=== PATIENT | female | born 1965 | race Caucasian/White ===

== ENCOUNTER 2017-05-14 16:40 | Emergency (ER) | payer OTHER ==
[~2017-05-14] VITALS: Ht 170.2 cm; Wt 63.3 kg
[~2017-05-14 16:40] MED LIST: IMODIUM MS REL1 EACH PO; TYLENOL WITH C1 EACH PO
[2017-05-14 18:02] LABS: HEMATOCRIT 32.8 % (36.0-46.0); MCH 32.6 PG (29.0-34.0); MCHC 33.8 G/DL (30.0-36.0); MCV 96.2 FL (83-99); MEAN PLAT.VOLUME 11.5 uM^3 (9.5-12.4); PLATELET COUNT 52 K/uL (156-360); RBC DIS.WIDTH-CV 15.1 % (11.8-14.6); RBC DIS.WIDTH-SD 53.4 % (39-53); RED BLOOD COUNT 3.41 M/uL (3.80-5.20)
[2017-05-14 18:10] LABS: CHLORIDE 108 mEq/L (99-109); POTASSIUM 3.1 mEq/L (3.7-5.4); SODIUM 142 mEq/L (136-147)
[2017-05-14 18:12] LABS: ADD MIUA? YES; BILIRUBIN NEGATIVE; BLOOD SMALL; COLOR YELLOW ((YELLOW)); GLUCOSE (STRIP) NEGATIVE; KETONES NEGATIVE; LEUKOCYTES NEGATIVE; NITRITE NEGATIVE; PROTEIN (STRIP) NEGATIVE; SPECIFIC GRAVITY 1.003 (1.000-1.030); UROBILINOGEN 0.2 MG/DL (0.2-1.0)
[2017-05-14 18:13] LABS: GLUCOSE 104 mg/dL (70-99)
[2017-05-14 18:14] LABS: ANION GAP 8 MEQ/L (2-14); TOTAL BILIRUBIN 3.9 mg/dL (0.0-1.0)
[2017-05-14 18:15] LABS: SERUM ETHYL ALCOHOL 394 mg/dL
[2017-05-14 18:16] LABS: ALKALINE PHOSPHATASE 73 IU/L (3-129); GFR ESTIMATE (CALCULATED) > 59 mL/min/
[2017-05-14 18:17] LABS: UREA NITROGEN (BUN) 3 mg/dL (9-23)
[2017-05-14 18:34] LABS: EPITHELIAL CELLS RARE /HPF; RED BLOOD CELLS 0-5 /HPF (0-5); WHITE BLOOD CELLS RARE /HPF (0-5)
[2017-05-14 18:35] LABS: BACTERIA 2+ /HPF; CASTS NONE SEEN /LPF; CRYSTALS NONE SEEN; MUCUS RARE /LPF; UCUL ADDED? NO
[2017-05-14 20:29] VITALS: BP 117/69
== END 2017-05-14 20:30 | disposition home or self-care (01) ==
LOC: EME 16:40
PROVIDERS: Emergency Medicine
DX: F10.129 Alcohol abuse with intoxication, unspecified (principal); R19.7 Diarrhea, unspecified; D69.6 Thrombocytopenia, unspecified; E11.9 Type 2 diabetes mellitus without complications; Z87.891 Personal history of nicotine dependence
CPT/HCPCS: 74176; 80053; 81003; 85027; 99281; 99285; G0480; J7030

== ENCOUNTER 2017-06-11 15:11 | Emergency (ER) | payer OTHER ==
[~2017-06-11] VITALS: Ht 165.1 cm; Wt 68.1 kg
[2017-06-11 17:59] LABS: EOSINOPHIL (%) 0.8 % (0-5); INSTRUMENT ABS NEUTROPHIL CT 1.3 K/uL; LYMPHOCYTE COUNT 1.5 K/uL (1.0-2.8); MCH 31.2 PG (29.0-34.0); MCHC 32.3 G/DL (30.0-36.0); MCV 96.6 FL (83-99); MONOCYTE (%) 22.4 % (3-12); MONOCYTE COUNT 0.8 K/uL (0-0.8); NEUTROPHIL (%) 35.5 % (45-76); NEUTROPHIL COUNT 1.3 K/uL (1.8-6.4); RBC DIS.WIDTH-CV 15.7 % (11.8-14.6); RBC DIS.WIDTH-SD 55.8 % (39-53); RED BLOOD COUNT 3.21 M/uL (3.80-5.20); WHITE BLOOD COUNT 3.8 K/uL (4.1-10.2)
[2017-06-11 19:30] LABS: MEAN PLAT.VOLUME 12.8 uM^3 (9.5-12.4); PLATELET COUNT 46 K/uL (156-360)
[2017-06-11 19:32] LABS: PLAT.SUFFICIENCY VERY DECREASED
[2017-06-11 19:57] VITALS: BP 122/74
== END 2017-06-11 19:59 | disposition home or self-care (01) ==
LOC: EME 15:11
PROVIDERS: Emergency Medicine
DX: R04.0 Epistaxis (principal); Z85.42 Personal history of malignant neoplasm of other parts of uterus; Z90.710 Acquired absence of both cervix and uterus; Z87.891 Personal history of nicotine dependence
CPT/HCPCS: 85025; 99281; 99283

== ENCOUNTER 2017-09-02 12:24 | Inpatient (IN) | payer OTHER ==
[~2017-09-02] VITALS: Ht 167.6 cm; Wt 80.0 kg
[2017-09-02 12:48] LABS: POINT-OF-CARE METER ID UU13113778
[2017-09-02 13:13] LABS: ADD MIUA? YES; BILIRUBIN NEGATIVE; BLOOD SMALL; COLOR YELLOW ((YELLOW)); GLUCOSE (STRIP) NEGATIVE; KETONES NEGATIVE; LEUKOCYTES NEGATIVE; NITRITE NEGATIVE; PROTEIN (STRIP) NEGATIVE; SPECIFIC GRAVITY 1.003 (1.000-1.030); UROBILINOGEN 0.2 MG/DL (0.2-1.0)
[2017-09-02 13:17] LABS: HEMATOCRIT 21.4 % (36.0-46.0); MCH 25.7 PG (29.0-34.0); MCHC 29.9 G/DL (30.0-36.0); MCV 85.9 FL (83-99); RBC DIS.WIDTH-CV 22.2 % (11.8-14.6); RED BLOOD COUNT 2.49 M/uL (3.80-5.20); WHITE BLOOD COUNT 3.5 K/uL (4.1-10.2)
[2017-09-02 13:20] LABS: CHLORIDE 113 mEq/L (99-109); POTASSIUM 3.2 mEq/L (3.7-5.4); SODIUM 141 mEq/L (136-147)
[2017-09-02 13:21] LABS: GLUCOSE 151 mg/dL (70-99)
[2017-09-02 13:23] LABS: ANION GAP 5 MEQ/L (2-14)
[2017-09-02 13:25] LABS: GFR ESTIMATE (CALCULATED) > 59 mL/min/
[2017-09-02 13:26] LABS: UREA NITROGEN (BUN) 2 mg/dL (9-23)
[2017-09-02 13:35] LABS: BACTERIA RARE /HPF; EPITHELIAL CELLS RARE /HPF; MUCUS NONE SEEN /LPF; RED BLOOD CELLS 0-5 /HPF (0-5); UCUL ADDED? NO; WHITE BLOOD CELLS 0-5 /HPF (0-5)
[2017-09-02 13:56] LABS: IMM.PLATELET FRACTION 11.9 (1-7); PLAT.SUFFICIENCY DECREASED; PLATELET COUNT 30 K/uL (156-360)
[2017-09-02 15:28] LABS: INTER. NORMALIZED RATIO 2.4; PROTHROMBIN TIME 26.8 SEC (10.2-12.9)
[2017-09-02 15:36] LABS: TOTAL BILIRUBIN 3.9 mg/dL (0.0-1.0)
[2017-09-02 15:37] LABS: ALKALINE PHOSPHATASE 119 IU/L (3-129); SERUM ETHYL ALCOHOL 370 mg/dL
[2017-09-02 15:39] LABS: DIRECT BILIRUBIN 2.5 mg/dL (0.0-0.3)
[2017-09-02 15:41] LABS: LIPASE 106 U/L (1.0-51.0)
[2017-09-02 16:34] LABS: MAGNESIUM 1.4 mg/dL (1.3-2.7)
[2017-09-02 17:30] VITALS: BP 127/63
[2017-09-02] MEDS ORDERED: ZANTAC150 MG PO (19:45)
[2017-09-02] MEDS ORDERED: PRILOSEC20 MG PO (19:46)
[2017-09-02] MEDS ORDERED: GLUCOTROL10 MG PO (19:46)
[2017-09-02] MEDS ORDERED: MILK THISTLE150 MG PO (19:47)
[2017-09-02] MEDS ORDERED: VITAMIN B-1100 MG PO (19:47)
[2017-09-02] MEDS ORDERED: PROZAC10 MG PO (19:48)
[2017-09-02 19:50] VITALS: BP 106/73
[2017-09-03] VITALS (21 sets, daily range): BP systolic 26–141; BP diastolic 7–86
[2017-09-03 00:57] LABS: MCV 87.4 FL (83-99)
[2017-09-03 09:50] LABS: HEMATOCRIT 22.2 % (36.0-46.0); MCV 86.4 FL (83-99)
[2017-09-03 10:31] LABS: PTT 55.5 SEC (25-37)
[2017-09-03 10:36] LABS: INTER. NORMALIZED RATIO 2.6; PROTHROMBIN TIME 29.4 SEC (10.2-12.9)
[2017-09-03 10:53] LABS: POINT-OF-CARE METER ID UU14314088
[2017-09-03 11:06] LABS: MCH 26.4 PG (29.0-34.0); MCHC 30.4 G/DL (30.0-36.0); RBC DIS.WIDTH-CV 20.3 % (11.8-14.6); RBC DIS.WIDTH-SD 61.2 % (39-53); RED BLOOD COUNT 2.58 M/uL (3.80-5.20); WHITE BLOOD COUNT 2.2 K/uL (4.1-10.2)
[2017-09-03 11:34] LABS: IMM.PLATELET FRACTION 9.7 (1-7); PLAT.SUFFICIENCY DECREASED
[2017-09-03 16:06] LABS: HEMATOCRIT 22.8 % (36.0-46.0)
[2017-09-04] VITALS (17 sets, daily range): BP systolic 120–157; BP diastolic 65–98
[2017-09-04 05:49] LABS: INTER. NORMALIZED RATIO 2.3; PROTHROMBIN TIME 25.7 SEC (10.2-12.9)
[2017-09-04 05:58] LABS: HEMATOCRIT 25.5 % (36.0-46.0); MCH 26.8 PG (29.0-34.0); MCHC 31.8 G/DL (30.0-36.0); MCV 84.4 FL (83-99); RBC DIS.WIDTH-CV 18.7 % (11.8-14.6); RBC DIS.WIDTH-SD 55.2 % (39-53); RED BLOOD COUNT 3.02 M/uL (3.80-5.20); WHITE BLOOD COUNT 3.1 K/uL (4.1-10.2)
[2017-09-04 06:20] LABS: IMM.PLATELET FRACTION 5.8 (1-7); PLAT.SUFFICIENCY VERY DECREASED
[2017-09-04 06:29] LABS: PLATELET COUNT 25 K/uL (156-360)
[2017-09-04 11:58] LABS: ALKALINE PHOSPHATASE 72 IU/L (3-129); ANION GAP 6 MEQ/L (2-14); CHLORIDE 108 MEQ/L (99-109); GFR ESTIMATE (CALCULATED) > 59 mL/min/; GLUCOSE 154 mg/dL (70-99); POTASSIUM 3.4 MEQ/L (3.7-5.4); SAMPLE HEMOLYSIS CHECK 0; SAMPLE ICTERIC CHECK 2; SAMPLE LIPEMIA CHECK 0; SODIUM 137 MEQ/L (136-147); TOTAL BILIRUBIN 6.8 MG/DL (0.0-1.0); UREA NITROGEN (BUN) 5 mg/dL (9-23)
[2017-09-04 20:59] LABS: HEMATOCRIT 25.5 % (36.0-46.0)
[2017-09-05 01:20] LABS: HEMATOCRIT 25.4 % (36.0-46.0); MCV 84.1 FL (83-99)
[2017-09-05 04:10] VITALS: BP 157/80
[2017-09-05 06:34] LABS: HEMATOCRIT 26.8 % (36.0-46.0); MCV 85.4 FL (83-99)
[2017-09-05 06:42] LABS: INTER. NORMALIZED RATIO 2.4
[2017-09-05 06:45] LABS: MCH 26.9 PG (29.0-34.0); MCHC 31.5 G/DL (30.0-36.0); MCV 85.4 FL (83-99); NRBC (%) 0.6 /100 WBC (0-0); RBC DIS.WIDTH-CV 19.6 % (11.8-14.6); RBC DIS.WIDTH-SD 58.2 % (39-53); RED BLOOD COUNT 3.16 M/uL (3.80-5.20); WHITE BLOOD COUNT 3.4 K/uL (4.1-10.2)
[2017-09-05 07:13] LABS: IMM.PLATELET FRACTION 4.7 (1-7); PLAT.SUFFICIENCY DECREASED
[2017-09-05 07:14] LABS: PLATELET COUNT 40 K/uL (156-360)
[2017-09-05 08:41] LABS: ALKALINE PHOSPHATASE 62 IU/L (3-129); ANION GAP 7 MEQ/L (2-14); CHLORIDE 105 MEQ/L (99-109); GFR ESTIMATE (CALCULATED) > 59 mL/min/; GLUCOSE 133 mg/dL (70-99); POTASSIUM 3.2 MEQ/L (3.7-5.4); SODIUM 136 MEQ/L (136-147); TOTAL BILIRUBIN 7.1 MG/DL (0.0-1.0); UREA NITROGEN (BUN) 5 mg/dL (9-23)
[2017-09-05 09:00] VITALS: BP 150/74
[2017-09-05 12:00] VITALS: BP 126/72
[2017-09-05 16:05] LABS: HEMATOCRIT 25.8 % (36.0-46.0); MCV 86.6 FL (83-99)
[2017-09-05 17:47] VITALS: BP 165/72
[2017-09-05 18:20] VITALS: BP 109/58
[2017-09-05 19:30] VITALS: BP 135/74
[2017-09-06 00:29] VITALS: BP 111/71
[2017-09-06 00:46] LABS: HEMATOCRIT 26.1 % (36.0-46.0); MCV 86.4 FL (83-99)
[2017-09-06 04:04] VITALS: BP 119/65
[2017-09-06 05:24] LABS: HEMATOCRIT 27.3 % (36.0-46.0); INTER. NORMALIZED RATIO 2.7; MCH 27.5 PG (29.0-34.0); MCHC 31.5 G/DL (30.0-36.0); MCV 87.2 FL (83-99); PROTHROMBIN TIME 30.3 SEC (10.2-12.9); RBC DIS.WIDTH-CV 20.3 % (11.8-14.6); RBC DIS.WIDTH-SD 59.7 % (39-53); RED BLOOD COUNT 3.13 M/uL (3.80-5.20); WHITE BLOOD COUNT 2.9 K/uL (4.1-10.2)
[2017-09-06 05:49] LABS: IMM.PLATELET FRACTION 5.4 (1-7); PLATELET COUNT 35 K/uL (156-360)
[2017-09-06 05:52] LABS: ALKALINE PHOSPHATASE 59 IU/L (3-129); ANION GAP 6 MEQ/L (2-14); CHLORIDE 108 MEQ/L (99-109); GFR ESTIMATE (CALCULATED) > 59 mL/min/; GLUCOSE 105 mg/dL (70-99); MAGNESIUM 1.5 mg/dl (1.3-2.7); POTASSIUM 3.6 MEQ/L (3.7-5.4); SAMPLE HEMOLYSIS CHECK 0; SAMPLE ICTERIC CHECK 2; SAMPLE LIPEMIA CHECK 0; SODIUM 137 MEQ/L (136-147); TOTAL BILIRUBIN 7.5 MG/DL (0.0-1.0); UREA NITROGEN (BUN) 5 mg/dL (9-23)
[2017-09-06 07:07] VITALS: BP 129/66
[2017-09-06 12:26] VITALS: BP 122/57
[2017-09-06 16:06] VITALS: BP 120/58
[2017-09-06 16:11] LABS: HEMATOCRIT 28.2 % (36.0-46.0); MCV 88.4 FL (83-99)
[2017-09-06 20:39] VITALS: BP 137/74
[2017-09-07 01:06] LABS: HEMATOCRIT 27.6 % (36.0-46.0); MCV 88.2 FL (83-99)
[2017-09-07 01:16] VITALS: BP 132/71
[2017-09-07 05:09] VITALS: BP 122/65
[2017-09-07 07:09] VITALS: BP 140/69
[2017-09-07 07:12] LABS: INTER. NORMALIZED RATIO 2.9; PROTHROMBIN TIME 33.5 SEC (10.2-12.9)
[2017-09-07 07:18] LABS: HEMATOCRIT 27.4 % (36.0-46.0); MCH 27.9 PG (29.0-34.0); MCHC 31.4 G/DL (30.0-36.0); RBC DIS.WIDTH-CV 21.4 % (11.8-14.6); RBC DIS.WIDTH-SD 62.9 % (39-53); RED BLOOD COUNT 3.08 M/uL (3.80-5.20); WHITE BLOOD COUNT 2.6 K/uL (4.1-10.2)
[2017-09-07 07:37] LABS: ALKALINE PHOSPHATASE 56 IU/L (3-129); ANION GAP 6 MEQ/L (2-14); CHLORIDE 109 MEQ/L (99-109); GFR ESTIMATE (CALCULATED) > 59 mL/min/; MAGNESIUM 1.4 mg/dl (1.3-2.7); PLAT.SUFFICIENCY DECREASED; PLATELET COUNT 30 K/uL (156-360); POTASSIUM 3.8 MEQ/L (3.7-5.4); SAMPLE HEMOLYSIS CHECK 0; SAMPLE ICTERIC CHECK 2; SAMPLE LIPEMIA CHECK 0; SODIUM 136 MEQ/L (136-147); TOTAL BILIRUBIN 7.5 MG/DL (0.0-1.0); UREA NITROGEN (BUN) 5 mg/dL (9-23)
[2017-09-07 07:38] LABS: GLUCOSE 69 mg/dL (70-99)
[2017-09-07 11:29] VITALS: BP 113/67
[2017-09-07 16:37] LABS: HEMATOCRIT 28.1 % (36.0-46.0); MCV 88.9 FL (83-99)
[2017-09-07 17:19] VITALS: BP 104/59
[2017-09-08 00:46] LABS: HEMATOCRIT 25.7 % (36.0-46.0); MCV 86.8 FL (83-99)
[2017-09-08 01:21] VITALS: BP 116/58
[2017-09-08 06:18] LABS: HEMATOCRIT 26.2 % (36.0-46.0); MCV 87.3 FL (83-99)
[2017-09-08 06:35] LABS: INTER. NORMALIZED RATIO 2.9; PROTHROMBIN TIME 33.7 SEC (10.2-12.9)
[2017-09-08 08:00] VITALS: BP 129/67
[2017-09-08 15:28] VITALS: BP 129/65
[2017-09-08] MEDS ORDERED: AMLODIPINE BESYL5 MG PO (15:50)
[2017-09-08] MEDS ORDERED: PANTOPRAZOLE SO40 MG PO (15:51)
[2017-09-08] MEDS ORDERED: LIBRIUM25 MG PO (15:53)
== END 2017-09-08 18:47 | DRG 377 ==
LOC: EME 12:24 → 4EAST 16:10 → EDOF 16:10 → ENRESERV 16:14 → 4EAST 17:32 → ENRESERV 21:42 → CANRESERV 21:57 → ENRESERV 21:57 → 4EAST 09-07 10:15 → ENRESERV 09-07 10:16 → 5EAST 09-07 16:24 → ENPENDDIS 09-08 → 5EAST 09-08 18:47
PROVIDERS: Emergency Medicine; Hospitalist; Internal Medicine
DX: K92.1 Melena (principal); K76.6 Portal hypertension; K31.89 Other diseases of stomach and duodenum; K70.30 Alcoholic cirrhosis of liver without ascites; I85.11 Secondary esophageal varices with bleeding; D62 Acute posthemorrhagic anemia; D68.4 Acquired coagulation factor deficiency; D61.818 Other pancytopenia; R04.0 Epistaxis; F10.239 Alcohol dependence with withdrawal, unspecified; F10.229 Alcohol dependence with intoxication, unspecified; K70.10 Alcoholic hepatitis without ascites; E88.09 Other disorders of plasma-protein metabolism, not elsewhere classified; B18.2 Chronic viral hepatitis C; Y90.8 Blood alcohol level of 240 mg/100 ml or more; E83.42 Hypomagnesemia; E87.6 Hypokalemia; E11.65 Type 2 diabetes mellitus with hyperglycemia; Z80.1 Family history of malignant neoplasm of trachea, bronchus and lung; Z87.891 Personal history of nicotine dependence
CPT/HCPCS: 80048; 80053; 80076; 81003; 82948; 83690; 83735; 84100; 85014; 85018; 85027; 85610; 85730; 86850; 86900; 86901; 86920; 90686; 94799; 99281; 99285; C9113; G0480; J2354; J2405; J3411; J3430; J3475; J3480; J7030; J7050; P9016; P9035

== ENCOUNTER 2018-02-03 10:25 | Observation (INO) | payer OTHER ==
[~2018-02-03] VITALS: Ht 165.1 cm; Wt 71.1 kg
[2018-02-03] VITALS (11 sets, daily range): BP systolic 101–117; BP diastolic 49–60
[~2018-02-03 10:25] MED LIST changes: +AMLODIPINE BESYL5 MG PO; +GLUCOTROL5 MG PO; +LIBRIUM25 MG PO; +MILK THISTLE150 MG PO; +PANTOPRAZOLE SO40 MG PO; +PRILOSEC20 MG PO; +PROZAC40 MG PO; +VITAMIN B-1100 MG PO; +ZANTAC150 MG PO
[2018-02-03 13:33] LABS: HEMATOCRIT 19.7 % (36.0-46.0); MCH 24.6 PG (29.0-34.0); MCHC 30.5 G/DL (30.0-36.0); MCV 80.7 FL (83-99); RBC DIS.WIDTH-CV 23.9 % (11.8-14.6); RBC DIS.WIDTH-SD 69.3 % (39-53); RED BLOOD COUNT 2.44 M/uL (3.80-5.20); WHITE BLOOD COUNT 3.1 K/uL (4.1-10.2)
[2018-02-03 13:35] LABS: ALBUMIN 2.5 g/dL (3.2-4.8); CHLORIDE 109 mEq/L (99-109); POTASSIUM 3.4 mEq/L (3.7-5.4); SODIUM 137 mEq/L (136-147)
[2018-02-03 13:37] LABS: GLUCOSE 179 mg/dL (70-99); TOTAL PROTEIN 7.1 g/dL (6.4-8.3)
[2018-02-03 13:39] LABS: TOTAL BILIRUBIN 4.6 mg/dL (0.0-1.0)
[2018-02-03 13:41] LABS: ALKALINE PHOSPHATASE 133 IU/L (3-129); CREATININE 0.6 mg/dL (0.6-1.3); GFR ESTIMATE (CALCULATED) > 59 mL/min/
[2018-02-03 13:42] LABS: UREA NITROGEN (BUN) 6 mg/dL (9-23)
[2018-02-03 13:43] LABS: AST (GOT) 82 IU/L (2-34)
[2018-02-03 13:44] LABS: ALT (GPT) 30 IU/L (3-49)
[2018-02-03 13:45] LABS: INTER. NORMALIZED RATIO 1.9
[2018-02-03 13:47] LABS: PTT 41.6 SEC (25-37)
[2018-02-03 14:44] LABS: IMM.PLATELET FRACTION 7.1 (1-7); PLAT.SUFFICIENCY VERY DECREASED; PLATELET COUNT 37 K/uL (156-360)
[2018-02-03 15:25] LABS: APPEARANCE SL.HAZY ((CLEAR)); BILIRUBIN NEGATIVE; BLOOD NEGATIVE; COLOR AMBER ((YELLOW)); GLUCOSE (STRIP) NEGATIVE; KETONES NEGATIVE; LEUKOCYTES NEGATIVE; NITRITE NEGATIVE; PROTEIN (STRIP) NEGATIVE; SPECIFIC GRAVITY 1.017 (1.000-1.030)
[2018-02-03 15:28] LABS: BACTERIA RARE /HPF; CALCIUM OXALATE CRYSTALS 3+ /HPF; EPITHELIAL CELLS 1+ /HPF; MUCUS 3+ /LPF; RED BLOOD CELLS 0-5 /HPF (0-5); UCUL ADDED? NO; WHITE BLOOD CELLS 0-5 /HPF (0-5)
[2018-02-03] MEDS ORDERED: AMLODIPINE BESYL5 MG PO (15:55)
[2018-02-03] MEDS ORDERED: PROTONIX40 MG PO (15:56)
[2018-02-03] MEDS ORDERED: TRAZODONE HCL50 MG PO (15:56)
[2018-02-03 21:58] LABS: HEMATOCRIT 21.6 % (36.0-46.0); MCH 25.7 PG (29.0-34.0); MCHC 31.9 G/DL (30.0-36.0); MCV 80.6 FL (83-99); RBC DIS.WIDTH-CV 20.8 % (11.8-14.6); RBC DIS.WIDTH-SD 60.2 % (39-53); RED BLOOD COUNT 2.68 M/uL (3.80-5.20); WHITE BLOOD COUNT 2.5 K/uL (4.1-10.2)
[2018-02-03 21:59] LABS: HEMOGLOBIN 6.9 G/DL (11.9-15.5)
[2018-02-03 22:43] LABS: ABS NEUTROPHIL COUNT 1.6; ANISOCYTOSIS 1+; BAND NEUTROPHILS 0.9 % (0-8.0); BASOPHILS 1.8 %; EOSINOPHIL ABS CT 0; EOSINOPHILS 1.8 % (0-5.0); IMM.PLATELET FRACTION 7.7 (1-7); LYMPHOCYTES 18.7 % (15.0-45.0); MONOCYTES 13.4 % (0-9.0); MYELOCYTES 0.9 %; NUCLEATED RBC'S 0.9; PLAT.SUFFICIENCY VERY DECREASED; PLATELET COUNT 28 K/uL (156-360); POIKILOCYTOSIS 1+; SEG.NEUTROPHILS 62.5 % (46.0-76.0); SMUDGE CELLS 20.5
[2018-02-03 22:56] LABS: MAGNESIUM 1.3 mg/dL (1.3-2.7)
[2018-02-03 23:29] LABS: SERUM ETHYL ALCOHOL 196 mg/dL
[2018-02-03 23:43] LABS: AMPHETAMINE NEGATIVE (500 ng/mL); BARBITURATES NEGATIVE (200 ng/mL); BENZODIAZEPINES NEGATIVE (150 ng/mL); BUPRENORPHINE NEGATIVE (10 ng/mL); COCAINE NEGATIVE (150 ng/mL); METHADONE NEGATIVE (200 ng/mL); METHAMPHETAMINE NEGATIVE (500 ng/mL); OPIATES (MORPHINE) NEGATIVE (100 ng/mL); OXYCODONE NEGATIVE (100 ng/mL); PHENCYCLIDINE NEGATIVE (25 ng/mL); PROPOXYPHENE NEGATIVE (300 ng/mL); THC CANNABINOIDS NEGATIVE (50 ng/mL); TRICYCLIC ANTIDEPRESSANTS NEGATIVE (300 ng/mL)
[2018-02-04] VITALS (13 sets, daily range): BP systolic 100–122; BP diastolic 55–59
[2018-02-04 09:57] LABS: INTER. NORMALIZED RATIO 1.9
[2018-02-04 10:00] LABS: PTT 41.3 SEC (25-37)
[2018-02-04 10:19] LABS: HEMATOCRIT 27.7 % (36.0-46.0); HEMOGLOBIN 8.6 G/DL (11.9-15.5); MCH 24.9 PG (29.0-34.0); MCV 80.3 FL (83-99); RBC DIS.WIDTH-CV 19.8 % (11.8-14.6); RBC DIS.WIDTH-SD 56.5 % (39-53); WHITE BLOOD COUNT 2.5 K/uL (4.1-10.2)
[2018-02-04 10:21] LABS: RED BLOOD COUNT 3.45 M/uL (3.80-5.20)
[2018-02-04 10:28] LABS: ALBUMIN 2.2 G/DL (3.2-4.8); ALKALINE PHOSPHATASE 78 IU/L (3-129); ALT (GPT) 20 IU/L (3-49); AST (GOT) 54 IU/L (2-34); CHLORIDE 108 MEQ/L (99-109); CREATININE 0.4 MG/DL (0.6-1.3); GFR ESTIMATE (CALCULATED) > 59 mL/min/; MAGNESIUM 1.8 mg/dl (1.3-2.7); POTASSIUM 3.6 MEQ/L (3.7-5.4); SODIUM 134 MEQ/L (136-147); TOTAL BILIRUBIN 6.9 MG/DL (0.0-1.0); TOTAL PROTEIN 6.2 G/DL (6.4-8.3); UREA NITROGEN (BUN) 5 mg/dL (9-23)
[2018-02-04 10:29] LABS: GLUCOSE 106 mg/dL (70-99)
[2018-02-04 10:33] LABS: IMM.PLATELET FRACTION 5.1 (1-7); PLAT.SUFFICIENCY DECREASED
[2018-02-04 10:34] LABS: PLATELET COUNT 41 K/uL (156-360)
[2018-02-04] MEDS ORDERED: CHLORDIAZEPOXID25 MG PO (16:04)
[2018-02-04] MEDS ORDERED: FOLIC ACID1 MG PO (16:04)
[2018-02-07 12:42] LABS: HCV RNA (LOG IU/mL) 4.77 (())
== END 2018-02-04 18:52 | disposition home or self-care (01) ==
LOC: EME 10:25 → 5WEST 22:15 → EDOF 22:15 → ENRESERV 22:19 → 5WEST 23:18 → ENPENDDIS 02-04 → 5WEST 02-04 18:52
PROVIDERS: Emergency Medicine; Hospitalist; Nurse Practitioner Acute Care; Physician Assistant Medical
PROC: 30233N1 Transfusion of Nonautologous Red Blood Cells into Peripheral Vein, Percutaneous Approach (ICD-10-PCS; principal; 2018-02-03)
DX: D61.818 Other pancytopenia (principal); R04.0 Epistaxis; F10.229 Alcohol dependence with intoxication, unspecified; B18.2 Chronic viral hepatitis C; K70.30 Alcoholic cirrhosis of liver without ascites; E11.65 Type 2 diabetes mellitus with hyperglycemia; Z91.14 Patient's other noncompliance with medication regimen; I10 Essential (primary) hypertension; Z79.4 Long term (current) use of insulin; K21.9 Gastro-esophageal reflux disease without esophagitis; F41.9 Anxiety disorder, unspecified; F32.9 Major depressive disorder, single episode, unspecified; E88.09 Other disorders of plasma-protein metabolism, not elsewhere classified; Z87.891 Personal history of nicotine dependence; Z87.19 Personal history of other diseases of the digestive system; E87.6 Hypokalemia; E83.42 Hypomagnesemia; Y90.6 Blood alcohol level of 120-199 mg/100 ml; Z90.710 Acquired absence of both cervix and uterus; Z80.1 Family history of malignant neoplasm of trachea, bronchus and lung; Z81.1 Family history of alcohol abuse and dependence; Z82.49 Family history of ischemic heart disease and other diseases of the circulatory system
CPT/HCPCS: 71046; 80053; 81003; 82948; 83735; 85025; 85027; 85610; 85730; 86850; 86900; 86901; 86920; 87522 90; 93005; 99281; 99285; G0378; G0480; J3411; J3475; J3480; J7030; P9016; P9035

== ENCOUNTER 2018-04-08 14:14 | Emergency (ER) | payer OTHER ==
[~2018-04-08] VITALS: Ht 165.1 cm; Wt 73.0 kg
[~2018-04-08 14:14] MED LIST changes: +CHLORDIAZEPOXID25 MG PO; +FOLIC ACID1 MG PO; +PROTONIX40 MG PO; +TRAZODONE HCL50 MG PO
[2018-04-08 15:15] LABS: APPEARANCE CLEAR ((CLEAR)); BILIRUBIN NEGATIVE; BLOOD NEGATIVE; COLOR YELLOW ((YELLOW)); GLUCOSE (STRIP) >=500; KETONES NEGATIVE; LEUKOCYTES NEGATIVE; NITRITE NEGATIVE; PROTEIN (STRIP) NEGATIVE; SPECIFIC GRAVITY 1.007 (1.000-1.030); UCUL ADDED? NO
[2018-04-08 15:17] LABS: BASOPHIL (%) 0.8 % (0-1); EOSINOPHIL (%) 3.7 % (0-5); HEMATOCRIT 27.3 % (36.0-46.0); LYMPHOCYTE (%) 38.2 % (15-42); MCH 30.1 PG (29.0-34.0); MCV 91.3 FL (83-99); MONOCYTE (%) 22.3 % (3-12); NEUTROPHIL (%) 34.4 % (45-76); RBC DIS.WIDTH-CV 21.6 % (11.8-14.6); RBC DIS.WIDTH-SD 70.5 % (39-53); RED BLOOD COUNT 2.99 M/uL (3.80-5.20); WHITE BLOOD COUNT 5.2 K/uL (4.1-10.2)
[2018-04-08 15:18] LABS: EOSINOPHIL COUNT 0.2 K/uL (0-0.3); IMMATURE GRANULOCYTE (%) 0.6 % (0.0-0.7); MONOCYTE COUNT 1.2 K/uL (0-0.8); NEUTROPHIL COUNT 1.8 K/uL (1.8-6.4)
[2018-04-08 15:20] LABS: ALBUMIN 2.4 g/dL (3.2-4.8)
[2018-04-08 15:21] LABS: CHLORIDE 102 mEq/L (99-109); POTASSIUM 3.7 mEq/L (3.7-5.4); SODIUM 133 mEq/L (136-147)
[2018-04-08 15:23] LABS: GLUCOSE 344 mg/dL (70-99)
[2018-04-08 15:25] LABS: AMPHETAMINE NEGATIVE (500 ng/mL); BARBITURATES NEGATIVE (200 ng/mL); BENZODIAZEPINES PRESUMPTIVE POSITIVE (150 ng/mL); BUPRENORPHINE NEGATIVE (10 ng/mL); COCAINE NEGATIVE (150 ng/mL); METHADONE NEGATIVE (200 ng/mL); METHAMPHETAMINE NEGATIVE (500 ng/mL); OPIATES (MORPHINE) NEGATIVE (100 ng/mL); OXYCODONE NEGATIVE (100 ng/mL); PHENCYCLIDINE NEGATIVE (25 ng/mL); PROPOXYPHENE NEGATIVE (300 ng/mL); THC CANNABINOIDS NEGATIVE (50 ng/mL); TRICYCLIC ANTIDEPRESSANTS NEGATIVE (300 ng/mL)
[2018-04-08 15:25] LABS: TOTAL BILIRUBIN 4.7 mg/dL (0.0-1.0)
[2018-04-08 15:26] LABS: ALKALINE PHOSPHATASE 155 IU/L (3-129); SERUM ETHYL ALCOHOL 273 mg/dL
[2018-04-08 15:27] LABS: CREATININE 0.7 mg/dL (0.6-1.3); GFR ESTIMATE (CALCULATED) > 59 mL/min/
[2018-04-08 15:28] LABS: AST (GOT) 34 IU/L (2-34); UREA NITROGEN (BUN) 7 mg/dL (9-23)
[2018-04-08 15:30] LABS: ALT (GPT) 15 IU/L (3-49)
[2018-04-08 15:59] LABS: BENZODIAZEPINES, URINE SCREEN POSITIVE (200 ng/mL)
[2018-04-08 16:10] LABS: IMM.PLATELET FRACTION 7.5 (1-7); PLAT.SUFFICIENCY VERY DECREASED; PLATELET COUNT 39 K/uL (156-360)
[2018-04-08 19:16] VITALS: BP 120/61
== END 2018-04-08 19:18 | disposition home or self-care (01) ==
LOC: EME 14:14
PROVIDERS: Emergency Medicine
DX: F10.129 Alcohol abuse with intoxication, unspecified (principal); Y90.8 Blood alcohol level of 240 mg/100 ml or more; E11.65 Type 2 diabetes mellitus with hyperglycemia; Z79.4 Long term (current) use of insulin; B19.20 Unspecified viral hepatitis C without hepatic coma; K74.60 Unspecified cirrhosis of liver; F41.9 Anxiety disorder, unspecified; Z87.891 Personal history of nicotine dependence; Z86.73 Personal history of transient ischemic attack (TIA), and cerebral infarction without residual deficits
CPT/HCPCS: 70450; 80053; 81003; 82010; 82948; 84999; 85025; 99281; 99285; G0480; J7030

== ENCOUNTER 2018-04-29 15:05 | Emergency (ER) | payer OTHER ==
[~2018-04-29] VITALS: Ht 165.1 cm; Wt 71.1 kg
[2018-04-29 15:40] LABS: HEMATOCRIT 26.9 % (36.0-46.0); HEMOGLOBIN 9.1 G/DL (11.9-15.5); MCH 30.5 PG (29.0-34.0); MCHC 33.8 G/DL (30.0-36.0); MCV 90.3 FL (83-99); RBC DIS.WIDTH-CV 18.1 % (11.8-14.6); RED BLOOD COUNT 2.98 M/uL (3.80-5.20); WHITE BLOOD COUNT 4.4 K/uL (4.1-10.2)
[2018-04-29 15:42] LABS: ALBUMIN 2.5 g/dL (3.2-4.8); CHLORIDE 106 mEq/L (99-109); POTASSIUM 3.5 mEq/L (3.7-5.4); SODIUM 141 mEq/L (136-147)
[2018-04-29 15:44] LABS: GLUCOSE 285 mg/dL (70-99)
[2018-04-29 15:46] LABS: TOTAL BILIRUBIN 4.3 mg/dL (0.0-1.0)
[2018-04-29 15:47] LABS: SERUM ETHYL ALCOHOL 335 mg/dL
[2018-04-29 15:48] LABS: ALKALINE PHOSPHATASE 125 IU/L (3-129); CREATININE 0.6 mg/dL (0.6-1.3); GFR ESTIMATE (CALCULATED) > 59 mL/min/
[2018-04-29 15:49] LABS: UREA NITROGEN (BUN) 6 mg/dL (9-23)
[2018-04-29 15:50] LABS: AST (GOT) 46 IU/L (2-34)
[2018-04-29 15:51] LABS: ALT (GPT) 23 IU/L (3-49)
[2018-04-29 16:16] LABS: HEMATOLOGY COMMENT 1 SN; IMM.PLATELET FRACTION 6.2 (1-7); PLAT.SUFFICIENCY DECREASED; PLATELET COUNT 47 K/uL (156-360)
[2018-04-29 17:19] LABS: APPEARANCE SL.HAZY ((CLEAR)); BILIRUBIN NEGATIVE; BLOOD MODERATE; COLOR AMBER ((YELLOW)); GLUCOSE (STRIP) >=500; KETONES 5; LEUKOCYTES MODERATE; NITRITE NEGATIVE; PROTEIN (STRIP) 30; SPECIFIC GRAVITY 1.016 (1.000-1.030)
[2018-04-29 17:54] LABS: BACTERIA RARE /HPF; CALCIUM OXALATE CRYSTALS 2+ /HPF; EPITHELIAL CELLS 1+ /HPF; HYALINE CASTS 0-5 /LPF; MUCUS TRACE /LPF; RED BLOOD CELLS 15-20 /HPF (0-5); UCUL ADDED? YES; WHITE BLOOD CELLS TNTC /HPF (0-5)
[2018-04-29] MEDS ORDERED: KEFLEX500 MG PO (18:24)
[2018-04-29 19:35] VITALS: BP 121/67
== END 2018-04-29 19:36 | disposition home or self-care (01) ==
LOC: EME 15:05
PROVIDERS: Emergency Medicine
DX: N39.0 Urinary tract infection, site not specified (principal); E11.65 Type 2 diabetes mellitus with hyperglycemia; M25.561 Pain in right knee; R94.31 Abnormal electrocardiogram [ECG] [EKG]; K74.60 Unspecified cirrhosis of liver; B19.20 Unspecified viral hepatitis C without hepatic coma; F41.9 Anxiety disorder, unspecified; Z87.891 Personal history of nicotine dependence; Z86.73 Personal history of transient ischemic attack (TIA), and cerebral infarction without residual deficits; Z79.84 Long term (current) use of oral hypoglycemic drugs
CPT/HCPCS: 71046; 73564; 80053; 81003; 82948; 85027; 87077; 87086; 87186; 93005; 99281; 99284; G0480; J7030

== ENCOUNTER 2018-05-07 02:23 | Inpatient (IN) | payer OTHER ==
[~2018-05-07] VITALS: Ht 165.1 cm; Wt 66.5 kg
[~2018-05-07 02:23] MED LIST changes: +KEFLEX500 MG PO
[2018-05-07 04:11] LABS: APPEARANCE CLEAR ((CLEAR)); BILIRUBIN NEGATIVE; BLOOD MODERATE; COLOR AMBER ((YELLOW)); GLUCOSE (STRIP) >=500; KETONES NEGATIVE; LEUKOCYTES SMALL; NITRITE POSITIVE; PROTEIN (STRIP) NEGATIVE; SPECIFIC GRAVITY 1.015 (1.000-1.030)
[2018-05-07 04:18] LABS: BACTERIA RARE /HPF; EPITHELIAL CELLS RARE /HPF; MUCUS TRACE /LPF; UCUL ADDED? YES; WHITE BLOOD CELLS 20-30 /HPF (0-5)
[2018-05-07 04:28] LABS: AMPHETAMINE NEGATIVE (500 ng/mL); BARBITURATES NEGATIVE (200 ng/mL); BENZODIAZEPINES PRESUMPTIVE POSITIVE (150 ng/mL); BUPRENORPHINE NEGATIVE (10 ng/mL); COCAINE NEGATIVE (150 ng/mL); METHADONE NEGATIVE (200 ng/mL); METHAMPHETAMINE NEGATIVE (500 ng/mL); OPIATES (MORPHINE) NEGATIVE (100 ng/mL); OXYCODONE NEGATIVE (100 ng/mL); PHENCYCLIDINE NEGATIVE (25 ng/mL); PROPOXYPHENE NEGATIVE (300 ng/mL); THC CANNABINOIDS NEGATIVE (50 ng/mL); TRICYCLIC ANTIDEPRESSANTS NEGATIVE (300 ng/mL)
[2018-05-07 04:33] LABS: HEMATOCRIT 23.7 % (36.0-46.0); HEMOGLOBIN 7.9 G/DL (11.9-15.5); MCH 30.7 PG (29.0-34.0); MCHC 33.3 G/DL (30.0-36.0); MCV 92.2 FL (83-99); RBC DIS.WIDTH-CV 19.1 % (11.8-14.6); RBC DIS.WIDTH-SD 62.1 % (39-53); RED BLOOD COUNT 2.57 M/uL (3.80-5.20); WHITE BLOOD COUNT 3.3 K/uL (4.1-10.2)
[2018-05-07 04:40] LABS: ALBUMIN 2.3 g/dL (3.2-4.8); CHLORIDE 109 mEq/L (99-109); POTASSIUM 3.1 mEq/L (3.7-5.4); SODIUM 140 mEq/L (136-147)
[2018-05-07 04:44] LABS: GLUCOSE 264 mg/dL (70-99); TOTAL BILIRUBIN 5.5 mg/dL (0.0-1.0); TOTAL PROTEIN 6.3 g/dL (6.4-8.3)
[2018-05-07 04:45] LABS: SERUM ETHYL ALCOHOL < 10 mg/dL
[2018-05-07 04:46] LABS: ALKALINE PHOSPHATASE 76 IU/L (3-129); CREATININE 0.6 mg/dL (0.6-1.3); GFR ESTIMATE (CALCULATED) > 59 mL/min/
[2018-05-07 04:47] LABS: UREA NITROGEN (BUN) 8 mg/dL (9-23)
[2018-05-07 04:48] LABS: AST (GOT) 36 IU/L (2-34)
[2018-05-07 04:49] LABS: ALT (GPT) 20 IU/L (3-49); TROP-I INTERPRETATION NEGATIVE; TROPONIN-I 0.01 ng/mL (0.0-0.30)
[2018-05-07 04:50] LABS: LIPASE 45 U/L (1.0-51.0)
[2018-05-07 04:51] LABS: MAGNESIUM 1.2 mg/dL (1.3-2.7)
[2018-05-07 05:06] LABS: BENZODIAZEPINES, URINE SCREEN POSITIVE (200 ng/mL)
[2018-05-07 05:08] LABS: IMM.PLATELET FRACTION 7.5 (1-7); PLAT.SUFFICIENCY VERY DECREASED
[2018-05-07 05:10] LABS: PLATELET COUNT 18 K/uL (156-360)
[2018-05-07] MEDS ORDERED: LISINOPRIL5 MG PO (07:32)
[2018-05-07 08:32] LABS: INTER. NORMALIZED RATIO 2.1
[2018-05-07 08:35] LABS: PTT 43.8 SEC (25-37)
[2018-05-07 10:12] VITALS: BP 111/58
[2018-05-07 19:46] VITALS: BP 124/70
[2018-05-07 23:05] VITALS: BP 130/70
[2018-05-08 03:37] VITALS: BP 141/63
[2018-05-08 06:21] LABS: HEMATOCRIT 27.1 % (36.0-46.0); HEMOGLOBIN 8.6 G/DL (11.9-15.5); MCH 29.7 PG (29.0-34.0); MCHC 31.7 G/DL (30.0-36.0); MCV 93.4 FL (83-99); NRBC (%) 0.6 /100 WBC (0-0); RBC DIS.WIDTH-CV 19.5 % (11.8-14.6); RBC DIS.WIDTH-SD 65.6 % (39-53); WHITE BLOOD COUNT 3.4 K/uL (4.1-10.2)
[2018-05-08 06:48] LABS: HEMATOLOGY COMMENT 1 SN; IMM.PLATELET FRACTION 6.9 (1-7); PLAT.SUFFICIENCY VERY DECREASED
[2018-05-08 06:49] LABS: PLATELET COUNT 24 K/uL (156-360)
[2018-05-08 06:53] LABS: ALBUMIN 2.1 G/DL (3.2-4.8); ALKALINE PHOSPHATASE 57 IU/L (3-129); ALT (GPT) 15 IU/L (3-49); AST (GOT) 28 IU/L (2-34); CHLORIDE 112 MEQ/L (99-109); CREATININE 0.4 MG/DL (0.6-1.3); GFR ESTIMATE (CALCULATED) > 59 mL/min/; GLUCOSE 159 mg/dL (70-99); MAGNESIUM 1.5 mg/dl (1.3-2.7); PHOSPHORUS 2.1 mg/dL (2.5-4.9); POTASSIUM 3.5 MEQ/L (3.7-5.4); SODIUM 139 MEQ/L (136-147); TOTAL BILIRUBIN 4.9 MG/DL (0.0-1.0); UREA NITROGEN (BUN) 7 mg/dL (9-23)
[2018-05-08 08:31] VITALS: BP 143/66
[2018-05-08 11:58] VITALS: BP 128/70
[2018-05-08 15:56] VITALS: BP 132/68
[2018-05-08 20:04] VITALS: BP 120/82
[2018-05-09 00:34] VITALS: BP 138/82
[2018-05-09 03:00] VITALS: BP 132/70
[2018-05-09 07:14] LABS: ALBUMIN 2.1 G/DL (3.2-4.8); ALKALINE PHOSPHATASE 62 IU/L (3-129); ALT (GPT) 15 IU/L (3-49); AST (GOT) 32 IU/L (2-34); CHLORIDE 108 MEQ/L (99-109); CREATININE 0.4 MG/DL (0.6-1.3); GFR ESTIMATE (CALCULATED) > 59 mL/min/; GLUCOSE 160 mg/dL (70-99); SODIUM 135 MEQ/L (136-147); TOTAL BILIRUBIN 4.5 MG/DL (0.0-1.0); TOTAL PROTEIN 5.6 G/DL (6.4-8.3); UREA NITROGEN (BUN) 7 mg/dL (9-23)
[2018-05-09 07:17] LABS: HEMATOCRIT 25.8 % (36.0-46.0); HEMOGLOBIN 8.1 G/DL (11.9-15.5); MCH 29.2 PG (29.0-34.0); MCHC 31.4 G/DL (30.0-36.0); MCV 93.1 FL (83-99); RBC DIS.WIDTH-CV 19.9 % (11.8-14.6); RBC DIS.WIDTH-SD 64.4 % (39-53); RED BLOOD COUNT 2.77 M/uL (3.80-5.20); WHITE BLOOD COUNT 2.9 K/uL (4.1-10.2)
[2018-05-09 07:23] LABS: IMM.PLATELET FRACTION 6.1 (1-7)
[2018-05-09 07:27] LABS: PLATELET COUNT 25 K/uL (156-360)
[2018-05-09 08:45] VITALS: BP 122/62
[2018-05-09 12:21] VITALS: BP 120/54
[2018-05-09 18:18] VITALS: BP 136/45
[2018-05-09 19:41] VITALS: BP 138/62
[2018-05-10 00:20] VITALS: BP 146/60
[2018-05-10 04:53] VITALS: BP 140/80
[2018-05-10 06:32] LABS: ALBUMIN 2.2 G/DL (3.2-4.8); ALKALINE PHOSPHATASE 75 IU/L (3-129); ALT (GPT) 16 IU/L (3-49); AST (GOT) 36 IU/L (2-34); CHLORIDE 105 MEQ/L (99-109); CREATININE 0.5 MG/DL (0.6-1.3); GFR ESTIMATE (CALCULATED) > 59 mL/min/; GLUCOSE 227 mg/dL (70-99); MAGNESIUM 1.3 mg/dl (1.3-2.7); POTASSIUM 3.5 MEQ/L (3.7-5.4); SODIUM 131 MEQ/L (136-147); TOTAL PROTEIN 5.9 G/DL (6.4-8.3); UREA NITROGEN (BUN) 6 mg/dL (9-23)
[2018-05-10 06:36] LABS: HEMATOCRIT 28.4 % (36.0-46.0); HEMOGLOBIN 8.9 G/DL (11.9-15.5); MCH 29.5 PG (29.0-34.0); MCHC 31.3 G/DL (30.0-36.0); RBC DIS.WIDTH-CV 20.6 % (11.8-14.6); RBC DIS.WIDTH-SD 66.6 % (39-53); RED BLOOD COUNT 3.02 M/uL (3.80-5.20); WHITE BLOOD COUNT 3.8 K/uL (4.1-10.2)
[2018-05-10 07:12] LABS: IMM.PLATELET FRACTION 7.4 (1-7); PLAT.SUFFICIENCY VERY DECREASED
[2018-05-10 07:14] LABS: PLATELET COUNT 42 K/uL (156-360)
[2018-05-10 08:35] LABS: PHOSPHORUS 3.2 mg/dL (2.5-4.9)
[2018-05-10 09:07] VITALS: BP 131/62
[2018-05-10 11:42] VITALS: BP 134/65
[2018-05-10 16:18] VITALS: BP 124/58
[2018-05-10 19:59] VITALS: BP 102/80
[2018-05-11 00:10] VITALS: BP 102/70
[2018-05-11 07:02] LABS: HEMATOCRIT 24.8 % (36.0-46.0); MCH 30.1 PG (29.0-34.0); MCHC 32.3 G/DL (30.0-36.0); MCV 93.2 FL (83-99); RBC DIS.WIDTH-CV 20.9 % (11.8-14.6); RBC DIS.WIDTH-SD 70.3 % (39-53); RED BLOOD COUNT 2.66 M/uL (3.80-5.20); WHITE BLOOD COUNT 4.2 K/uL (4.1-10.2)
[2018-05-11 07:18] LABS: BASOPHIL (%) 0.5 % (0-1); EOSINOPHIL (%) 2.9 % (0-5); EOSINOPHIL COUNT 0.1 K/uL (0-0.3); IMM.PLATELET FRACTION 7.7 (1-7); IMMATURE GRANULOCYTE (%) 0.2 % (0.0-0.7); LYMPHOCYTE (%) 31.5 % (15-42); LYMPHOCYTE COUNT 1.3 K/uL (1.0-2.8); MONOCYTE (%) 22.6 % (3-12); MONOCYTE COUNT 0.9 K/uL (0-0.8); NEUTROPHIL (%) 42.3 % (45-76); NEUTROPHIL COUNT 1.8 K/uL (1.8-6.4); PLAT.SUFFICIENCY DECREASED
[2018-05-11 07:19] LABS: PLATELET COUNT 28 K/uL (156-360)
[2018-05-11 07:43] LABS: ALBUMIN 2.1 G/DL (3.2-4.8); ALT (GPT) 19 IU/L (3-49); AST (GOT) 42 IU/L (2-34); CHLORIDE 104 MEQ/L (99-109); CREATININE 0.4 MG/DL (0.6-1.3); GFR ESTIMATE (CALCULATED) > 59 mL/min/; GLUCOSE 276 mg/dL (70-99); MAGNESIUM 1.3 mg/dl (1.3-2.7); SODIUM 133 MEQ/L (136-147); TOTAL PROTEIN 5.5 G/DL (6.4-8.3); UREA NITROGEN (BUN) 8 mg/dL (9-23)
[2018-05-11 07:47] LABS: ALKALINE PHOSPHATASE 109 IU/L (3-129)
[2018-05-11 08:40] VITALS: BP 137/65
[2018-05-11 12:17] LABS: HEMOGLOBIN A1c (GLYCOHEMOGLOB) 7.8 % (Below 5.7)
[2018-05-11 14:38] LABS: FERRITIN 23 NG/ML (10-291); IRON 31 MCG/DL (35-150); TRANSFERRIN (TIBC) 182.2 mg/dL (215-380); TRANSFERRIN SATUR. 17 % (20-55)
[2018-05-11 15:30] VITALS: BP 110/65
[2018-05-12] VITALS (7 sets, daily range): BP systolic 102–136; BP diastolic 56–68
[2018-05-12 07:07] LABS: HEMATOCRIT 24.1 % (36.0-46.0); HEMOGLOBIN 7.8 G/DL (11.9-15.5); MCHC 32.4 G/DL (30.0-36.0); MCV 92.7 FL (83-99); RBC DIS.WIDTH-CV 20.7 % (11.8-14.6); RBC DIS.WIDTH-SD 68.6 % (39-53); WHITE BLOOD COUNT 3.8 K/uL (4.1-10.2)
[2018-05-12 07:08] LABS: ALBUMIN 2.1 G/DL (3.2-4.8); ALKALINE PHOSPHATASE 120 IU/L (3-129); ALT (GPT) 20 IU/L (3-49); AST (GOT) 40 IU/L (2-34); CHLORIDE 103 MEQ/L (99-109); CREATININE 0.4 MG/DL (0.6-1.3); GFR ESTIMATE (CALCULATED) > 59 mL/min/; GLUCOSE 189 mg/dL (70-99); MAGNESIUM 1.4 mg/dl (1.3-2.7); POTASSIUM 3.6 MEQ/L (3.7-5.4); SODIUM 132 MEQ/L (136-147); TOTAL BILIRUBIN 5.2 MG/DL (0.0-1.0); TOTAL PROTEIN 5.8 G/DL (6.4-8.3); UREA NITROGEN (BUN) 8 mg/dL (9-23)
[2018-05-12 07:20] LABS: ANISOCYTOSIS 2+; BASOPHILS 2.7 %; EOSINOPHILS 6.2 % (0-5.0); HYPOCHROMASIA 1+; IMM.PLATELET FRACTION 5.5 (1-7); LYMPHOCYTES 27.4 % (15.0-45.0); MACROCYTES 1+; MICROCYTOSIS 1+; OVALOCYTES 1+; PLAT.SUFFICIENCY DECREASED; PLATELET COUNT 30 K/uL (156-360); POIKILOCYTOSIS 2+; POLYCHROMASIA 1+; SEG.NEUTROPHILS 48.7 % (46.0-76.0); SPHEROCYTES 1+
[2018-05-12 07:21] LABS: ABS NEUTROPHIL COUNT 1.9; EOSINOPHIL ABS CT 0.2
[2018-05-12] MEDS ORDERED: METFORMIN HCL500 MG PO (10:38)
[2018-05-12] MEDS ORDERED: XIFAXAN550 MG PO (10:38)
[2018-05-12] MEDS ORDERED: Chronulac,Cephulac,E PO (10:38)
[2018-05-12] MEDS ORDERED: MAGNESIUM400 M1 PO (10:45)
[2018-05-12] MEDS ORDERED: POTASSIUM CHLO20 ME2 PO (10:45)
== END 2018-05-12 17:55 | disposition home or self-care (01) | DRG 442 ==
LOC: EME 02:23 → EDOF 07:26 → 3EAST 07:26 → ENRESERV 07:29 → 3EAST 10:12
PROVIDERS: Emergency Medicine; Family Medicine; Hospitalist; Internal Medicine
PROC: 30233N1 Transfusion of Nonautologous Red Blood Cells into Peripheral Vein, Percutaneous Approach (ICD-10-PCS; principal; 2018-05-12)
DX: K72.90 Hepatic failure, unspecified without coma (principal); D61.818 Other pancytopenia; F10.231 Alcohol dependence with withdrawal delirium; D68.4 Acquired coagulation factor deficiency; E83.42 Hypomagnesemia; E11.65 Type 2 diabetes mellitus with hyperglycemia; K70.10 Alcoholic hepatitis without ascites; N39.0 Urinary tract infection, site not specified; B96.20 Unspecified Escherichia coli [E. coli] as the cause of diseases classified elsewhere; K70.30 Alcoholic cirrhosis of liver without ascites; E87.6 Hypokalemia; I10 Essential (primary) hypertension; K21.9 Gastro-esophageal reflux disease without esophagitis; B18.2 Chronic viral hepatitis C; B85.2 Pediculosis, unspecified; F32.9 Major depressive disorder, single episode, unspecified; F41.9 Anxiety disorder, unspecified; R53.1 Weakness; Z91.19 Patient's noncompliance with other medical treatment and regimen; Z79.4 Long term (current) use of insulin; Z86.73 Personal history of transient ischemic attack (TIA), and cerebral infarction without residual deficits; Z87.891 Personal history of nicotine dependence; Z91.81 History of falling
CPT/HCPCS: 70450; 71045; 76705; 80048; 80053; 80076; 81003; 82140; 82607; 82728; 82948; 83036; 83540; 83690; 83735; 84100; 84466; 84484; 84999; 85025; 85027; 85610; 85730; 86850; 86900; 86901; 86920; 87077; 87086; 87186; 93005; 99281; 99285; G0480; J0696; J1815; J2405; J2765; J3475; J7030; P9016

== ENCOUNTER 2018-06-02 15:06 | Emergency (ER) | payer OTHER ==
[~2018-06-02] VITALS: Ht 165.1 cm; Wt 67.7 kg
[~2018-06-02 15:06] MED LIST changes: +Chronulac,Cephulac,E PO; +LISINOPRIL5 MG PO; +MAGNESIUM400 M1 PO; +METFORMIN HCL500 MG PO; +POTASSIUM CHLO20 ME2 PO; +XIFAXAN550 MG PO
[2018-06-02 16:12] LABS: APPEARANCE SL.HAZY ((CLEAR)); BILIRUBIN NEGATIVE; BLOOD SMALL; COLOR AMBER ((YELLOW)); GLUCOSE (STRIP) NEGATIVE; KETONES NEGATIVE; LEUKOCYTES NEGATIVE; NITRITE NEGATIVE; PROTEIN (STRIP) NEGATIVE; SPECIFIC GRAVITY 1.021 (1.000-1.030)
[2018-06-02 16:25] LABS: ALBUMIN 2.9 g/dL (3.2-4.8); CHLORIDE 110 mEq/L (99-109); SODIUM 143 mEq/L (136-147)
[2018-06-02 16:26] LABS: BACTERIA NONE SEEN /HPF; EPITHELIAL CELLS 1+ /HPF; HYALINE CASTS 20-30 /LPF; MUCUS 2+ /LPF; RED BLOOD CELLS 0-5 /HPF (0-5); UCUL ADDED? NO; WHITE BLOOD CELLS 0-5 /HPF (0-5)
[2018-06-02 16:28] LABS: GLUCOSE 180 mg/dL (70-99); TOTAL PROTEIN 8.1 g/dL (6.4-8.3)
[2018-06-02 16:30] LABS: BASOPHIL (%) 0.9 % (0-1); EOSINOPHIL (%) 3.7 % (0-5); EOSINOPHIL COUNT 0.1 K/uL (0-0.3); HEMATOCRIT 29.3 % (36.0-46.0); HEMOGLOBIN 9.7 G/DL (11.9-15.5); IMMATURE GRANULOCYTE (%) 0.6 % (0.0-0.7); LYMPHOCYTE (%) 53.1 % (15-42); LYMPHOCYTE COUNT 1.7 K/uL (1.0-2.8); MCH 30.2 PG (29.0-34.0); MCHC 33.1 G/DL (30.0-36.0); MCV 91.3 FL (83-99); MONOCYTE COUNT 0.4 K/uL (0-0.8); NEUTROPHIL (%) 28.7 % (45-76); NEUTROPHIL COUNT 0.9 K/uL (1.8-6.4); RBC DIS.WIDTH-CV 20.5 % (11.8-14.6); RED BLOOD COUNT 3.21 M/uL (3.80-5.20); TOTAL BILIRUBIN 3.8 mg/dL (0.0-1.0); WHITE BLOOD COUNT 3.2 K/uL (4.1-10.2)
[2018-06-02 16:31] LABS: ALKALINE PHOSPHATASE 117 IU/L (3-129); SERUM ETHYL ALCOHOL 314 mg/dL
[2018-06-02 16:32] LABS: CREATININE 0.7 mg/dL (0.6-1.3); GFR ESTIMATE (CALCULATED) > 59 mL/min/
[2018-06-02 16:33] LABS: AST (GOT) 67 IU/L (2-34); UREA NITROGEN (BUN) 3 mg/dL (9-23)
[2018-06-02 16:35] LABS: ALT (GPT) 25 IU/L (3-49); LIPASE 88 U/L (1.0-51.0)
[2018-06-02 16:39] LABS: AMPHETAMINE NEGATIVE (500 ng/mL); BARBITURATES NEGATIVE (200 ng/mL); BENZODIAZEPINES PRESUMPTIVE POSITIVE (150 ng/mL); BUPRENORPHINE NEGATIVE (10 ng/mL); COCAINE NEGATIVE (150 ng/mL); METHADONE NEGATIVE (200 ng/mL); METHAMPHETAMINE NEGATIVE (500 ng/mL); OPIATES (MORPHINE) NEGATIVE (100 ng/mL); OXYCODONE NEGATIVE (100 ng/mL); PHENCYCLIDINE NEGATIVE (25 ng/mL); PROPOXYPHENE NEGATIVE (300 ng/mL); THC CANNABINOIDS NEGATIVE (50 ng/mL); TRICYCLIC ANTIDEPRESSANTS NEGATIVE (300 ng/mL)
[2018-06-02 17:21] LABS: BENZODIAZEPINES, URINE SCREEN POSITIVE (200 ng/mL)
[2018-06-02 18:06] LABS: HEMATOLOGY COMMENT 1 SN; IMM.PLATELET FRACTION 5.6 (1-7); PLAT.SUFFICIENCY VERY DECREASED
[2018-06-02 18:07] LABS: PLATELET COUNT 30 K/uL (156-360)
[2018-06-02 23:08] VITALS: BP 101/60
== END 2018-06-02 23:09 | disposition home or self-care (01) ==
LOC: EXP 15:06 → EME 15:06 → EXP 23:09
PROVIDERS: Physician Assistant
DX: F10.129 Alcohol abuse with intoxication, unspecified (principal); K74.60 Unspecified cirrhosis of liver; R60.0 Localized edema; E72.20 Disorder of urea cycle metabolism, unspecified; I10 Essential (primary) hypertension; E11.9 Type 2 diabetes mellitus without complications; B19.20 Unspecified viral hepatitis C without hepatic coma; F41.9 Anxiety disorder, unspecified; Y90.8 Blood alcohol level of 240 mg/100 ml or more; Z87.891 Personal history of nicotine dependence; Z86.73 Personal history of transient ischemic attack (TIA), and cerebral infarction without residual deficits; Z85.9 Personal history of malignant neoplasm, unspecified
CPT/HCPCS: 73502; 80053; 81003; 82140; 83690; 84999; 85025; 99281; 99284; G0480; J1940; J7030